=== PATIENT | male | born 1955 | race Caucasian/White ===

== ENCOUNTER 2021-07-07 07:02 | Outpatient (CLI) | payer OTHER ==
[~2021-07-07 07:02] MED LIST: NON
== END 2021-07-07 07:10 | disposition home or self-care (01) ==
LOC: SONOGRAMA 07:02
PROVIDERS: ATTEND Internal Medicine Gastroenterology
DX: R10.84 Generalized abdominal pain (principal)

== ENCOUNTER → 2021-12-24 08:51 | Outpatient (CLI) | payer OTHER | END | disposition home or self-care (01) | LOC: LAB 08:51 | PROVIDERS: ATTEND Internal Medicine Gastroenterology | DX: K85.01 Idiopathic acute pancreatitis with uninfected necrosis (principal); K85.00 Idiopathic acute pancreatitis without necrosis or infection ==

== ENCOUNTER → 2022-05-22 | Outpatient (CLI) | payer OTHER | END | disposition home or self-care (01) | LOC: NUCLEAR 10:00 | DX: I25.118 Atherosclerotic heart disease of native coronary artery with other forms of angina pectoris (principal); I42.2 Other hypertrophic cardiomyopathy | CPT/HCPCS: 78472; A9560 ==

== ENCOUNTER 2022-07-06 07:08 | Outpatient (CLI) | payer OTHER | END 2022-07-06 07:09 | disposition home or self-care (01) | LOC: NUCLEAR 07:08 | DX: I25.118 Atherosclerotic heart disease of native coronary artery with other forms of angina pectoris (principal); I42.2 Other hypertrophic cardiomyopathy | CPT/HCPCS: 78452; 93017; A9500; J0153 ==

== ENCOUNTER 2023-09-07 12:32 | Outpatient (CLI) | payer OTHER | END 2023-09-07 12:37 | disposition home or self-care (01) | LOC: TOM 12:32 | PROVIDERS: ATTEND Internal Medicine Gastroenterology | DX: R19.4 Change in bowel habit (principal); K63.5 Polyp of colon; K57.30 Diverticulosis of large intestine without perforation or abscess without bleeding ==

== ENCOUNTER → 2024-12-04 12:25 | Outpatient (CLI) | payer OTHER | END | disposition home or self-care (01) | LOC: NUCLEAR 12:25 | PROVIDERS: ATTEND Internal Medicine Sports Medicine | DX: M81.0 Age-related osteoporosis without current pathological fracture (principal) ==

== ENCOUNTER 2025-01-22 08:46 | Outpatient (CLI) | payer OTHER | END 2025-01-22 08:53 | disposition home or self-care (01) | LOC: TOM 08:46 | DX: N40.1 Benign prostatic hyperplasia with lower urinary tract symptoms (principal); N39.0 Urinary tract infection, site not specified ==

== ENCOUNTER 2025-02-08 10:51 | Outpatient (CLI) | payer OTHER | END 2025-02-08 10:59 | disposition home or self-care (01) | LOC: RAD 10:51 | PROVIDERS: ATTEND Physical Medicine & Rehabilitation | DX: M75.41 Impingement syndrome of right shoulder (principal); M75.101 Unspecified rotator cuff tear or rupture of right shoulder, not specified as traumatic ==

== ENCOUNTER 2025-02-21 12:06 | Outpatient (CLI) | payer OTHER | END 2025-02-21 12:17 | disposition home or self-care (01) | LOC: MRI 12:06 | PROVIDERS: ATTEND Physical Medicine & Rehabilitation | DX: M54.2 Cervicalgia (principal); M75.41 Impingement syndrome of right shoulder | CPT/HCPCS: 72141; 73218 ==

== ENCOUNTER 2025-04-09 12:52 | Outpatient (CLI) | payer OTHER | END 2025-04-09 12:54 | disposition home or self-care (01) | LOC: SONOGRAMA 12:52 | PROVIDERS: ATTEND Internal Medicine Endocrinology, Diabetes & Metabolism | DX: E04.1 Nontoxic single thyroid nodule (principal) ==